=== PATIENT | male | born 1995 | race Hispanic/Latino ===

== ENCOUNTER 2021-09-02 12:31 | Emergency (ER) | payer OTHER | END 2021-09-02 13:53 | disposition home or self-care (01) | LOC: BURERS 12:31 | DX: S60.221A Contusion of right hand, initial encounter (principal); W23.0XXA Caught, crushed, jammed, or pinched between moving objects, initial encounter; J45.909 Unspecified asthma, uncomplicated; Z79.899 Other long term (current) drug therapy ==